=== PATIENT | female | born 1940 | race Caucasian/White ===

== ENCOUNTER 2020-09-29 12:50 | Emergency (ER) | payer MEDICARE, SELFPAY ==
[2020-09-29 13:12] VITALS: BP 146/71; PULSE 80; RESP 20; TEMP 36.6; O2SAT 100
--- NOTE | 2020-09-29 13:59 | ED.SKABFB ---
HPI - Skin/Abscess/Foreign Bdy General Chief complaint: Skin/Abscess/Foreign Body Stated complaint: Shingles pain Time Seen by Provider: 09/29/20 13:59 Source: patient and RN notes reviewed Mode of arrival: ambulatory Limitations: no limitations History of Present Illness HPI narrative: 79 year old female who presents to express care with complaints of red inflamed rash with fluid filled blister from right side of mid abdomen going around to her back which are painful and burning. Patient states that she called her doctor but couldn't get an appointment to be seen till next week. Patient states that her rash started on and she has been taking Tylenol and applying Aspercreme to the rash with minimal pain decrease. Patient denies any fevers, chills or sweats, denies any cough or congestion or any respiratory difficulty.Patient states that she was planning on getting shingles shot but in process of getting COVID 2nd vaccine. MD complaint: rash and other (shingles) Onset (ago): day(s) Tetanus up to date: unsure Location: back (right side of abdomen going into mid back) Severity: severe Severity scale (1-10): 10 Quality: burning and sharp Pain Consistency: constant Relieving factors: none Context: none Treatments prior to arrival: OTC topical medication and other (Tylenol) Related Data Home Medications Medication Instructions Recorded Confirmed aspirin [Aspirin Low Dose] 81 mg PO DAILY 09/29/20 09/29/20 levothyroxine 25 mcg PO DAILY 09/29/20 09/29/20 loratadine 10 mg PO DAILY 09/29/20 09/29/20 metoprolol succinate 25 mg PO DAILY 09/29/20 09/29/20 multivitamin [Daily Multivitamin] 1 tablet PO DAILY 09/29/20 09/29/20 pravastatin 10 mg PO DAILY 09/29/20 09/29/20 Allergies Allergy/AdvReac Type Severity Reaction Status Date / Time Penicillins Allergy Mild Swelling Verified 09/29/20 14:11 azithromycin Allergy Unknown Unknown Verified 09/29/20 14:05 ciprofloxacin AdvReac Intermediate Joint Pain Verified 09/29/20 14:04 omeprazole AdvReac Intermediate Joint Pain Verified 09/29/20 14:04 bupropion AdvReac Mild Joint Pain Verified 09/29/20 14:06 Sulfa (Sulfonamide AdvReac Mild Joint Pain Verified 09/29/20 14:11 Antibiotics) Review of Systems Review of Systems: Narrative: CONSTITUTIONAL: Denies fever, chills, or sweats. EYES: Denies visual changes, redness, or discharge. ENT: Denies rhinorrhea, congestion, sore throat, or otalgia. CARDIOVASCULAR: Denies chest pain, palpitations, or edema. RESPIRATORY: Denies cough or dyspnea. GASTROINTESTINAL: Denies abdominal pain except in region of shingles rash,no nausea, vomiting, or diarrhea. GENITOURINARY: Denies dysuria or hematuria. SKIN: Positive for red fluid filled rash lateral abdomen into back MUSCULOSKELETAL: Denies back pain except for area of rash,no other acute joint pain, or myalgia. NEUROLOGIC: Denies headache, numbness, or weakness. PSYCHIATRIC: Denies anxiety or depression. 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
== END 2020-09-29 14:40 | disposition home or self-care (01) ==
PROVIDERS: Emergency Provider Registered Nurse; PCP Internal Medicine
DX: B02.9 Zoster without complications (principal); Z95.1 Presence of aortocoronary bypass graft; Z96.643 Presence of artificial hip joint, bilateral
CPT/HCPCS: 99213; G0463